=== PATIENT | male | born 1970 | race Caucasian/White ===

== ENCOUNTER → 2018-01-17 07:33 | Outpatient (CLI) | payer MEDICAID ==
[2016-04-03 10:41] VITALS: BMI 27.2
[~2018-01-17 07:33] MED LIST: AMBIEN10 MG PO; HYDROCODON-ACE1 EAC7 PO; ULTRAM50 MG PO
== END | disposition home or self-care (01) ==
LOC: D.MRI 07:30
DX: M54.16 Radiculopathy, lumbar region (principal)